=== PATIENT | male | born 1990 | race Caucasian/White ===

== ENCOUNTER 2017-02-24 15:30 | Outpatient (RCR) | payer OTHER | END 2017-03-09 10:16 | disposition home or self-care (01) | DX: S39.012D Strain of muscle, fascia and tendon of lower back, subsequent encounter (principal); V89.2XXD Person injured in unspecified motor-vehicle accident, traffic, subsequent encounter ==

== ENCOUNTER 2020-11-27 08:31 | Emergency (ER) | payer OTHER, BC ==
[~2020-11-27] VITALS: Ht 177.8 cm; Wt 81.8 kg
--- OUTSIDE RECORDS SUMMARY | 2020-11-27 08:38 | XMS REPORT | Clinical Summary ---
Author Author [facility] Organization [facility] Address Unknown Phone Unavailable Care Team Providers Care It Compliance Analyst Name Role Phone PCP Unavailable Allergies No Known Active Allergies Medications End Date Status Medication Sig Dispensed Refills Start Date Active methylPREDNISolone follow 21 tablet 0 01 (MEDROL, LOTUS,) 4 mg package 5 tablet directions Active cephalexin (KEFLEX) 500 Take 1 10 capsule 0 /201 MG capsule capsule (500 8 mg total) by mouth 2 (two) times a day. 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 Blood Pressure 67 01/25/2015 11:51 AM CLIENT SERVICE MANAGER Pulse 36.4 C (97.6 F) 01/25/2015 10:35 AM CLIENT SERVICE MANAGER Temperature 18 01/25/2015 11:51 AM CLIENT SERVICE MANAGER Respiratory Rate 98% 01/25/2015 11:51 AM CLIENT SERVICE MANAGER Oxygen Saturation - - Inhaled Oxygen Concentration 83 kg (183 lb) 01/25/2015 10:35 AM CLIENT SERVICE MANAGER Weight 177.8 cm (5' 10") 01/25/2015 10:35 AM CLIENT SERVICE MANAGER Height 26.26 01/25/2015 10:35 AM CLIENT SERVICE MANAGER Body Mass Index Plan of Treatment Not on file Results Not on filefrom Last 3 Months Insurance Type Payer Benefit Subscriber ID Effective Phone Address Plan / Dates Group [employer] [facility] [id number] [id number] PREFERRED Present CARE BLUE (Work)
[2020-11-27] MEDS ORDERED: fentaNYL INJ 100 MCG/2 ML AMP IVP STA ×4 (08:50→10:10)
[2020-11-27] MEDS ORDERED: TETANUS,DIPTH,PERTUSS P/F (BOOSTRIX) 0.5 ML VIAL IM ONE (09:00)
[2020-11-27] MEDS ORDERED: LACTATED RINGERS 1,000 ML IV ONE (09:00)
[2020-11-27] MEDS ORDERED: fentaNYL INJ 100 MCG/2 ML AMP ONE (09:12)
[2020-11-27 09:15] LABS: HEMATOCRIT 45 % (40-54); HEMOGLOBIN 15.3 g/dL (13.3-17.7); MEAN CORPUSCULAR HEMOGLOBIN 31 pg (25-34); MEAN CORPUSCULAR HGB CONC 34 g/dL (32-36); MEAN CORPUSCULAR VOLUME 91 fL (80-99); MEAN PLATELET VOLUME 10.8 fL (9.0-12.2); PLATELET COUNT 295 10^3/uL (130-400); WHITE BLOOD COUNT 9.4 10^3/uL (4.3-11.0)
[2020-11-27 09:26] LABS: ALBUMIN 4.7 GM/DL (3.2-4.5); CHLORIDE 104 MMOL/L (98-107); POTASSIUM 3.9 MMOL/L (3.6-5.0); SODIUM 140 MMOL/L (135-145)
[2020-11-27 09:27] LABS: CALCIUM 9.6 MG/DL (8.5-10.1)
[2020-11-27 09:28] LABS: GLUCOSE 106 MG/DL (70-105); TOTAL PROTEIN 7.6 GM/DL (6.4-8.2)
[2020-11-27 09:29] LABS: CARBON DIOXIDE 25 MMOL/L (21-32)
[2020-11-27 09:30] LABS: BILIRUBIN,TOTAL 0.5 MG/DL (0.1-1.0)
[2020-11-27] MEDS ORDERED: CATHETER FLUSH 10 ML SYR IV PRN (09:30)
[2020-11-27] MEDS ORDERED: NS 100 ML (IVPB) BAG IV ONE (09:30)
[2020-11-27] MEDS ORDERED: HOLD METFORMIN - RECEIVED CONTRAST 20 ML VIAL IV SCH (09:30)
[2020-11-27] MEDS ORDERED: IOHEXOL 350 MG/ML 100 ML (OMNIPAQUE 350) VIAL IV ONE (09:30)
[2020-11-27 09:31] LABS: PHOSPHORUS 1.7 MG/DL (2.3-4.7)
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
[2020-11-27 09:32] LABS: ALKALINE PHOSPHATASE 55 U/L (40-136); CREATININE SERUM 1.25 MG/DL (0.60-1.30); GFR ESTIMATED 68
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
[2020-11-27 09:33] LABS: BILIRUBIN,DIRECT 0.2 MG/DL (0.0-0.3); BILIRUBIN,INDIRECT 0.3 MG/DL; BUN/CREATININE RATIO 12
[2020-11-27 09:35] LABS: ALANINE AMINOTRANSFERASE 43 U/L (0-55)
[2020-11-27 09:36] LABS: CREATINE KINASE 205 U/L (30-200)
[2020-11-27 09:46] LABS: BILIRUBIN,URINE NEGATIVE (NEGATIVE); CLARITY,URINE CLEAR; COLOR,URINE YELLOW; GLUCOSE, URINE (UA) NEGATIVE (NEGATIVE); KETONES,URINE NEGATIVE (NEGATIVE); LEUKOCYTE ESTERASE ,URINE NEGATIVE (NEGATIVE); NITRITE,URINE NEGATIVE (NEGATIVE); PROTEIN,URINE NEGATIVE (NEGATIVE)
[2020-11-27 09:51] LABS: FIBRIN DEGRADATION PRODUCTS 6.56 UG/ML (0.00-0.49); INR 0.9 (0.8-1.4); PROTHROMBIN TIME PATIENT 12.3 SEC (12.2-14.7)
[2020-11-27 09:54] LABS: WBC,URINE RARE /HPF
[2020-11-27 09:55] LABS: BACTERIA,URINE NEGATIVE /HPF; SQUAMOUS EPITHELIAL CELL,UR RARE /HPF
[2020-11-27 09:58] LABS: AMPHETAMINE SCREEN, URINE POSITIVE (NEGATIVE); BARBITURATE SCREEN URINE NEGATIVE (NEGATIVE); BENZODIAZEPINES SCREEN URINE NEGATIVE (NEGATIVE); CANNABINOID SCREEN, URINE NEGATIVE (NEGATIVE); COCAINE SCREEN URINE NEGATIVE (NEGATIVE); METHADONE STAT NEGATIVE (NEGATIVE); METHAMPHETAMINE SCREEN URINE S NEGATIVE (NEGATIVE); OPIATE SCREEN URINE NEGATIVE (NEGATIVE); OXYCODONE STAT NEGATIVE (NEGATIVE); PROPOXYPHENE STAT NEGATIVE (NEGATIVE); TRICYCLIC ANTIDEPRESSANTS SCRE NEGATIVE (NEGATIVE)
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
[2020-11-27] MEDS ORDERED: morphine INJ 10 MG/ML 1ML (SYR OR VIAL) IVP STA (10:45)
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
[2020-11-27] MEDS ORDERED: RX-MUPIROCIN (BACTROBAN) 2% OINT 22 GM TUBE TOP STA (11:03)
[2020-11-27] MEDS ORDERED: MUPI22OI2 TP (11:20)
[2020-11-27] MEDS ORDERED: TIZA4CAP PO (11:20)
[2020-11-27] MEDS ORDERED: NAPR500T8 PO (11:20)
[2020-11-27] MEDS ORDERED: HYDR-34 PO (11:20)
[2020-11-27] MEDS ORDERED: KETOROLAC 30 MG/ML VIAL IVP ONE (11:30)
[2020-11-27 12:01] VITALS: BP 123/86
== END 2020-11-27 12:01 | disposition home or self-care (01) ==
LOC: EDUNIT# 08:31 → ER 08:34
DX: S93.401A Sprain of unspecified ligament of right ankle, initial encounter (principal); S70.12XA Contusion of left thigh, initial encounter; S80.01XA Contusion of right knee, initial encounter; S80.11XA Contusion of right lower leg, initial encounter; G89.29 Other chronic pain; M54.9 Dorsalgia, unspecified; Z23 Encounter for immunization; Z79.891 Long term (current) use of opiate analgesic; V29.9XXA Motorcycle rider (driver) (passenger) injured in unspecified traffic accident, initial encounter
CPT/HCPCS: 70450; 71045; 71260; 72125; 72128; 72131; 72170; 73552; 73562; 73590; 73610; 74177; 80048; 80076; 80306; 81000; 82550; 83735; 84100; 85027; 85379; 85384; 85610; 85730; 86850; 86900; 86901; 86920; 99285; G0480; 36415; 80320; 90715

== ENCOUNTER → 2020-12-04 | Outpatient (CLI) | payer OTHER, BC ==
[~2020-12-04] MED LIST: HYDR-34 PO; MUPI22OI2 TP; NAPR500T8 PO; TIZA4CAP PO
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
== END ==
PROVIDERS: ATTEND Orthopaedic Surgery
DX: S92.134A Nondisplaced fracture of posterior process of right talus, initial encounter for closed fracture (principal); S82.54XA Nondisplaced fracture of medial malleolus of right tibia, initial encounter for closed fracture; V89.2XXA Person injured in unspecified motor-vehicle accident, traffic, initial encounter
CPT/HCPCS: 73700